=== PATIENT | female | born 1950 | race Two or more races ===

== ENCOUNTER 2021-05-14 10:31 | Outpatient (CLI) | payer OTHER ==
[~2021-05-14 10:31] MED LIST: LEVAQUIN750 MG PO; ULTRACET PO
== END 2021-05-14 10:36 | disposition home or self-care (01) ==
LOC: SONOGRAMA 10:31
PROVIDERS: ATTEND Pathology Anatomic Pathology & Clinical Pathology
DX: E07.89 Other specified disorders of thyroid (principal); E04.1 Nontoxic single thyroid nodule; D34 Benign neoplasm of thyroid gland; E04.8 Other specified nontoxic goiter